=== PATIENT | female | born 2000 | race Caucasian/White ===

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

== ENCOUNTER 2019-02-24 15:07 | Emergency (ER) | payer OTHER ==
[~2019-02-24] VITALS: Ht 170.2 cm; Wt 71.8 kg
[~2019-02-24 15:07] MED LIST: CELE20TA PO; JULE1TAB; NAPR-837 PO; REGL10TA6 PO
[2019-02-24 17:51] LABS: HEMOGLOBIN 12.7 g/dl (12.0-15.5); MEAN CORPUSCULAR HEMOGLOBIN 28.3 pg (27.0-33.0); MEAN CORPUSCULAR HGB CONC 33.4 g/dl (32.0-36.5); MEAN CORPUSCULAR VOLUME 84.8 fl (80.0-96.0); PLATELET COUNT, AUTOMATED 241 10^3/uL (150-450); RED BLOOD COUNT 4.48 10^6/uL (4.00-5.40); WHITE BLOOD COUNT 9.6 10^3/uL (4.0-10.0)
[2019-02-24 18:26] LABS: HCG, SERUM QUALITATIVE NEGATIVE (NEGATIVE)
[2019-02-24 18:27] LABS: AMPHETAMINES LEVEL URINE NEGATIVE (NEGATIVE); BARBITURATES URINE NEGATIVE (NEGATIVE); BENZODIAZEPINES URINE NEGATIVE (NEGATIVE); CANNABINOIDS URINE NEGATIVE (NEGATIVE); COCAINE METABOLITE URINE NEGATIVE (NEGATIVE); METHADONE URINE NEGATIVE (NEGATIVE); OPIATES URINE NEGATIVE (NEGATIVE); PHENCYCLIDINE URINE NEGATIVE (NEGATIVE)
[2019-02-24 18:52] LABS: BLOOD UREA NITROGEN 14 MG/DL (7-18); CALCIUM LEVEL 8.9 MG/DL (8.5-10.1); CARBON DIOXIDE LEVEL 25 MEQ/L (21-32); CHLORIDE LEVEL 103 MEQ/L (98-107); CREATININE FOR GFR 0.72 MG/DL (0.55-1.30); GLUCOSE, FASTING 84 MG/DL (70-100); POTASSIUM SERUM 3.9 MEQ/L (3.5-5.1); SODIUM LEVEL 137 MEQ/L (136-145)
[2019-02-24 18:53] LABS: ACETAMINOPHEN LEVEL < 2.0 UG/ML (10.0-30.0); ALBUMIN 3.6 GM/DL (3.2-5.2); ALT/SGPT 18 U/L (12-78); BILIRUBIN,DIRECT < 0.1 MG/DL (0.0-0.2); BILIRUBIN,TOTAL 0.3 MG/DL (0.2-1.0); ETHYL ALCOHOL (ETHANOL) < 0.003 % (0.000-0.010); SALICYLATE LEVEL < 1.7 MG/DL (5.0-30.0); TOTAL PROTEIN 8.1 GM/DL (6.4-8.2)
[2019-02-24] MEDS ORDERED: ACETAMINOPHEN 325 MG TAB PO ONE (19:00)
[2019-02-24] MEDS ORDERED: hydrOXYzine 25 MG TAB PO STA (19:40)
[2019-02-24] MEDS ORDERED: HYDR-3363 PO (19:46)
[2019-02-24 20:20] VITALS: BP 133/82
== END 2019-02-24 20:26 | disposition home or self-care (01) ==
LOC: M ED 15:07
DX: F41.1 Generalized anxiety disorder (principal); Z79.3 Long term (current) use of hormonal contraceptives
CPT/HCPCS: 36415; 80048; 80076; 80307; 84443; 84703; 85027; 99284; G0480

== ENCOUNTER → 2019-04-28 | Outpatient (REF) | payer OTHER ==
[~2019-04-28] MED LIST changes: +HYDR-3363 PO
[2019-04-28 20:21] LABS: MONO REFLEX EBV COMP NEGATIVE (NEGATIVE)
[2019-04-28 20:27] LABS: BASO % 0.2 % (0.0-1.0); EOS # 0.2 10^3/uL (0.0-0.50); EOS % 2.6 % (0.0-3.0); HEMATOCRIT 36.4 % (36.0-47.0); HEMOGLOBIN 11.7 g/dl (12.0-15.5); LYMPH # 3.8 10^3/uL (1.5-6.5); LYMPH % 43.2 % (24.0-44.0); MEAN CORPUSCULAR HGB CONC 32.1 g/dl (32.0-36.5); MEAN CORPUSCULAR VOLUME 83.9 fl (80.0-96.0); MONO # 0.6 10^3/uL (0.0-0.8); NEUTROPHILS # 4.1 10^3/uL (1.8-7.7); NEUTROPHILS % 46.7 % (36.0-66.0); PLATELET COUNT, AUTOMATED 241 10^3/uL (150-450); RED BLOOD COUNT 4.34 10^6/uL (4.00-5.40); WHITE BLOOD COUNT 8.7 10^3/uL (4.0-10.0)
[2019-05-01 14:07] LABS: EBV VIRAL CAPSID AG IgM <36.0 U/mL (0.0-35.9)
== END ==
LOC: M LAB REF 19:30 → M LABDRWAD 19:30
PROVIDERS: ATTEND Physician Assistant Medical
DX: J02.9 Acute pharyngitis, unspecified (principal)

== ENCOUNTER 2020-05-16 15:38 | Emergency (ER) | payer OTHER ==
[2020-05-16] MEDS ORDERED: NITROFURANTOIN (MACROBID) 100 MG CAP As Ordered ONE (20:53)
[2020-05-16] MEDS ORDERED: POTASSIUM CHLORIDE 10 MEQ SR TABLET As Ordered ONE (20:54)
[2020-05-16] MEDS ORDERED: NITROFURANTOIN (MACROBID) 100 MG CAP ONE (20:54)
[2020-05-16] MEDS ORDERED: POTASSIUM CHLORIDE 10 MEQ SR TABLET ONE (20:54)
[2020-06-28 11:32] LABS: APPEARANCE, URINE HAZY (CLEAR); BACTERIA, URINE AUTO 1+ (NEGATIVE); BILIRUBIN, URINE AUTO NEGATIVE (NEGATIVE); BLOOD, URINE BLOOD 3+ (NEGATIVE); COLOR, URINE RED (YELLOW); GLUCOSE, URINE (UA) AUTO NEGATIVE (NEGATIVE); KETONE, URINE AUTO NEGATIVE (NEGATIVE); LEUKOCYTE ESTERASE, URINE AUTO 2+ (NEGATIVE); MUCUS, URINE SMALL (NEGATIVE); NITRITE, URINE AUTO NEGATIVE (NEGATIVE); PROTEIN, URINE AUTO 2+ mg/dL (NEGATIVE); RBC, URINE AUTO 31 /HPF (0-3); SPECIFIC GRAVITY URINE AUTO 1.002 (1.002-1.035); SQUAMOUS EPITHELIAL CELL UR AU 0 /HPF (0-6); UROBILINOGEN, URINE AUTO 0.2 mg/dL (0.0-2.0); WBC, URINE AUTO 74 /HPF (0-3)
== END 2020-05-16 20:58 | disposition home or self-care (01) ==
LOC: M ED 15:38
DX: N30.01 Acute cystitis with hematuria (principal); Z87.448 Personal history of other diseases of urinary system

== ENCOUNTER → 2020-10-04 | Outpatient (CLI) | payer OTHER ==
--- NOTE | 2020-10-04 16:41 | REPPI ---
INDICATION: PAIN RIGHT KNEE COMPARISON: None. TECHNIQUE: AP, lateral, bilateral oblique and sunrise views right knee. (Images are mislabeled as left) FINDINGS: The osseous structures and joint spaces are intact and normal. There is no evidence for acute fracture or dislocation. No joint effusion is appreciated. Surrounding soft tissues are unremarkable. No subcutaneous emphysema or radiodense foreign body. IMPRESSION: Normal examination. No acute fracture or dislocation. <Electronically signed by Shai Silveira > 10/04/20 [id number]
== END ==
LOC: M PLAIMG 14:53
PROVIDERS: ATTEND Family Medicine
DX: M25.561 Pain in right knee (principal)

== ENCOUNTER → 2020-10-14 | Outpatient (CLI) | payer OTHER ==
--- NOTE | 2020-10-14 17:37 | REP ---
INDICATION: POSTERIOR R KNEE PAIN. COMPARISON: Radiographs 10/04/2020. TECHNIQUE: Multiple sequences obtained in the axial, coronal and sagittal planes. FINDINGS: Menisci: Intact, no tear. Cruciate ligaments: There is a complete tear of the anterior cruciate ligament. The posterior cruciate ligament is intact. Collateral ligaments: Intact. Extensor mechanism/patellar retinacula: Intact. Cartilage: Smooth, no osteochondral defect. Bone marrow: There is marrow edema and bone bruising in the lateral tibial plateau. Joint fluid: There is a moderate joint effusion. Popliteal region: No cyst. IMPRESSION: There is tear of the anterior cruciate ligament. This appears to be essentially a complete full-thickness tear. The menisci are intact. Bone bruise lateral tibial plateau. Moderate joint effusion. <Electronically signed by Calvin Webb > 10/14/20 [id number]
== END ==
LOC: M RAD 15:40
PROVIDERS: ATTEND Family Medicine
DX: S83.511A Sprain of anterior cruciate ligament of right knee, initial encounter (principal); M25.461 Effusion, right knee; X58.XXXA Exposure to other specified factors, initial encounter; Y92.9 Unspecified place or not applicable

== ENCOUNTER 2022-05-06 16:16 | Emergency (ER) | payer OTHER ==
[~2022-05-06] VITALS: Ht 170.2 cm; Wt 66.8 kg
[2022-05-06 16:17] VITALS: BP 128/87
[2022-05-06] MEDS ORDERED: OXYC1TAB23 (16:27)
[2022-05-06] MEDS ORDERED: COLA100C5 PO (16:27)
[2022-05-06] MEDS ORDERED: ASPI-1 PO (16:27)
== END 2022-05-06 19:35 | disposition left against medical advice (07) ==
LOC: M ED 16:16
DX: Z53.21 Procedure and treatment not carried out due to patient leaving prior to being seen by health care provider (principal)

== ENCOUNTER 2023-05-13 23:02 | Emergency (ER) | payer OTHER ==
[~2023-05-13] VITALS: Ht 170.2 cm; Wt 69.2 kg
[~2023-05-13 23:02] MED LIST changes: +ASPI-1 PO; +COLA100C5 PO; +OXYC1TAB23
[2023-05-13 23:03] VITALS: BP 126/78; TEMP 98.8; O2SAT 99
[2023-05-13 23:42] LABS: APPEARANCE, URINE CLOUDY (CLEAR); BACTERIA, URINE AUTO NEGATIVE (NEGATIVE); BILIRUBIN, URINE AUTO NEGATIVE (NEGATIVE); BLOOD, URINE BLOOD 3+ (NEGATIVE); COLOR, URINE YELLOW (YELLOW); GLUCOSE, URINE (UA) AUTO NEGATIVE (NEGATIVE); KETONE, URINE AUTO NEGATIVE (NEGATIVE); LEUKOCYTE ESTERASE, URINE AUTO 3+ (NEGATIVE); NITRITE, URINE AUTO NEGATIVE (NEGATIVE); PROTEIN, URINE AUTO 2+ mg/dL (NEGATIVE); RBC, URINE AUTO 63 /HPF (0-3); SPECIFIC GRAVITY URINE AUTO 1.005 (1.002-1.035); SQUAMOUS EPITHELIAL CELL UR AU 6 /HPF (0-6); UROBILINOGEN, URINE AUTO 0.2 mg/dL (0.0-2.0); WBC, URINE AUTO TNTC /HPF (0-3)
[2023-05-13 23:48] LABS: HEMATOCRIT 37.5 % (36.0-47.0); HEMOGLOBIN 12.2 g/dl (12.0-15.5); MEAN CORPUSCULAR HEMOGLOBIN 27.9 pg (27.0-33.0); MEAN CORPUSCULAR HGB CONC 32.5 g/dl (32.0-36.5); MEAN CORPUSCULAR VOLUME 85.6 fl (80.0-96.0); PLATELET COUNT, AUTOMATED 234 10^3/uL (150-450); RED BLOOD COUNT 4.38 10^6/uL (4.00-5.40); WHITE BLOOD COUNT 13.5 10^3/uL (4.0-10.0)
[2023-05-14 00:11] LABS: BLOOD UREA NITROGEN 12 MG/DL (9-23); CALCIUM LEVEL 9.2 MG/DL (8.5-10.1); CARBON DIOXIDE LEVEL 27 MMOL/L (20-31); CHLORIDE LEVEL 101 MMOL/L (98-107); CREATININE FOR GFR 0.76 MG/DL (0.55-1.30); GLOMERULAR FILTRATION RATE > 60.0 (>60); GLUCOSE, FASTING 105 MG/DL (60-100); POTASSIUM SERUM 4.2 MMOL/L (3.5-5.1); SODIUM LEVEL 135 MMOL/L (136-145)
== END 2023-05-14 03:17 | disposition left against medical advice (07) ==
LOC: M ED 23:02
DX: R10.9 Unspecified abdominal pain (principal); Z53.21 Procedure and treatment not carried out due to patient leaving prior to being seen by health care provider